=== PATIENT | male | born 1990 | race Two or more races ===

== ENCOUNTER 2020-03-14 23:56 | Emergency (ER) | payer MEDICAID, OTHER ==
[~2020-03-14] VITALS: Ht 182.9 cm; Wt 89.8 kg
[2020-03-15 00:17] VITALS: BP 138/96
[2020-03-15] MEDS ORDERED: MORPHINE SULF INJ 2 MG/ML SYRINGE 1ML IM ONE (01:30)
[2020-03-15] MEDS ORDERED: ONDANSETRON ODT 4 MG TAB PO ONE (01:30)
[2020-03-15] MEDS ORDERED: SILVER SULFADIAZINE 1 % TOPICAL CREAM 50GM TOP ONE ×2 (01:39→01:45)
== END 2020-03-15 03:41 | disposition home or self-care (01) ==
LOC: ER 23:56
DX: T23.161A Burn of first degree of back of right hand, initial encounter (principal); M25.512 Pain in left shoulder; M54.2 Cervicalgia; V49.9XXA Car occupant (driver) (passenger) injured in unspecified traffic accident, initial encounter; Y93.89 Activity, other specified; Y92.89 Other specified places as the place of occurrence of the external cause; Y99.8 Other external cause status
CPT/HCPCS: 70450; 71045; 72125; 73030; 96372; 99285; J2270; Q0162